=== PATIENT | male | born 1945 | race Caucasian/White ===

== ENCOUNTER 2022-08-22 13:30 | Outpatient (RCR) | payer MEDICARE, SELFPAY | END 2022-08-26 15:33 | disposition home or self-care (01) | LOC: HO.WCC 13:30 | PROVIDERS: Visit Provider Physician Assistant | DX: E11.622 Type 2 diabetes mellitus with other skin ulcer (principal); I87.313 Chronic venous hypertension (idiopathic) with ulcer of bilateral lower extremity; L97.821 Non-pressure chronic ulcer of other part of left lower leg limited to breakdown of skin; L97.811 Non-pressure chronic ulcer of other part of right lower leg limited to breakdown of skin; I73.9 Peripheral vascular disease, unspecified; E66.9 Obesity, unspecified; Z79.2 Long term (current) use of antibiotics; Z79.84 Long term (current) use of oral hypoglycemic drugs; Z87.891 Personal history of nicotine dependence | CPT/HCPCS: 97602; 99214 ==